=== PATIENT | male | born 1985 | race Caucasian/White ===

== ENCOUNTER 2016-05-16 14:28 | Emergency (ER) | payer MEDICAID ==
[~2016-05-16] VITALS: Ht 170.2 cm; Wt 78.9 kg
[2016-05-16 14:47] VITALS: BP 123/66
== END 2016-05-16 16:34 | disposition home or self-care (01) ==
LOC: ER 14:31
DX: H10.89 Other conjunctivitis (principal); B99.9 Unspecified infectious disease
CPT/HCPCS: A4606; Z7610

== ENCOUNTER 2022-10-22 09:59 | Inpatient (IN) | payer MEDICAID ==
[~2022-10-22] VITALS: Ht 172.7 cm; Wt 71.2 kg
[2022-10-22] MEDS ORDERED: IV NS 0.9% 250 ML IV ONE ×2 (10:48→10:51)
[2022-10-22] MEDS ORDERED: IOHEXOL-300 100 ML VIAL IV ONE ×2 (10:48→10:51)
[2022-10-22 11:09] LABS: CALCIUM, SERUM 8.9 mg/dL (8.5-10.1); CREATININE 0.8 mg/dL (0.6-1.3); POTASSIUM 4.2 mmol/L (3.5-5.1)
[2022-10-22 11:18] LABS: BASOPHILS % (AUTO) 0.5 % (0.0-2.0); EOSINOPHILS % (AUTO) 1.1 % (0.0-6.0); HEMATOCRIT 35 % (39-51); HEMOGLOBIN 11.3 g/dL (13.5-17.5); LYMPHOCYTES # (AUTO) 1.1 K/uL (0.8-4.8); LYMPHOCYTES % (AUTO) 25.8 % (20.0-44.0); MEAN CORPUSCULAR HEMOGLOBIN 25 PG (26.0-33.0); MEAN CORPUSCULAR HGB CONC 33 g/dl (31.0-36.0); MEAN CORPUSCULAR VOLUME 76 fL (80-96); MONOCYTES # (AUTO) 0.4 K/uL (0.1-1.30); MONOCYTES % (AUTO) 8.7 % (2.0-12.0); NEUTROPHILS # (AUTO) 2.8 K/uL (1.8-8.9); NEUTROPHILS % (AUTO) 63.9 % (43.0-81.0); PLATELET COUNT (AUTO) 338 K/uL (150-450); RED BLOOD CELL COUNT(AUTO) 4.53 MIL/uL (4.5-6.0); WHITE BLOOD COUNT (AUTO) 4.4 K/uL (4.3-11.0)
[2022-10-22 11:22] LABS: ALBUMIN 3.1 g/dL (3.4-5.0); BILIRUBIN,TOTAL 0.5 mg/dL (0.2-1.0); MAGNESIUM 1.9 mg/dL (1.8-2.4); TOTAL PROTEIN, SERUM 10.3 g/dL (6.4-8.2)
[2022-10-22 11:23] LABS: D-DIMER 7.09 mg/L(FEU (0.17-0.50); INR 1.17 (0.91-1.10); PARTIAL THROMBOPLASTIN TIME 29.2 SEC (24.3-34.3); PROTHROMBIN TIME 12.2 SECS (9.2-11.1)
[2022-10-22 11:26] LABS: THYROID STIMULATING HORMONE 3.605 uIU/mL (0.358-3.74)
[2022-10-22 12:28] LABS: APPEARANCE,URINE CLEAR (CLEAR); BILIRUBIN,URINE NEGATIVE (NEGATIVE); BLOOD, URINE 2+ Ery/uL (NEGATIVE); COLOR,URINE YELLOW (YELLOW); KETONES,URINE TRACE mg/dL (NEGATIVE); LEUKOCYTE ESTERASE ,URINE NEGATIVE (NEGATIVE); NITRITE, URINE NEGATIVE (NEGATIVE); PH,URINE 6.5 (5.0-8.0); PROTEIN,URINE NEGATIVE (NEGATIVE); UGLUCOSE NEGATIVE (NEGATIVE)
[2022-10-22] MEDS ORDERED: IV NS 0.9% 2,000 ML IV ONE (12:30)
[2022-10-22 12:40] LABS: AMPHETAMINE, URINE NEGATIVE (NEGATIVE); BARBITURATE, URINE NEGATIVE (NEGATIVE); BENZODIAZEPINE, URINE NEGATIVE (NEGATIVE); CANNABINOID, URINE NEGATIVE (NEGATIVE); COCCAINE, URINE NEGATIVE (NEGATIVE); OPIATE, URINE NEGATIVE (NEGATIVE); PHENCYCLIDINE SCREEN,URINE NEGATIVE (NEGATIVE)
[2022-10-22 12:44] LABS: ADD URINE CULTURE NO; BACTERIA,URINE None seen /HPF (None Seen); SQUAMOUS EPITHELIAL CELL,UR None Seen /HPF (None Seen); WBC,URINE NONE SEEN /HPF (0-3)
[2022-10-22 16:00] VITALS: BP 116/79; TEMP 99.6; O2SAT 98
[2022-10-22] MEDS ORDERED: HYDROCODONE/APAP 5/325MG TABLET PO PRN (17:00)
[2022-10-22] MEDS ORDERED: ACETAMINOPHEN 325 MG TABLET PO PRN (17:00)
[2022-10-22] MEDS ORDERED: ZOLPIDEM TARTRATE 5 MG TABLET PO PRN (17:30)
[2022-10-22] MEDS: IV NS 0.9% 1,000 ML IV PRN (18:17)
[2022-10-22 18:55] VITALS: BP 116/79; TEMP 98.3; O2SAT 98
[2022-10-22 20:00] VITALS: BP 112/70; TEMP 98.1; O2SAT 99
[2022-10-23] MEDS: IV NS 0.9% 1,000 ML IV PRN ×4 (01:07→23:40)
[2022-10-23 07:16] LABS: BASOPHILS % (AUTO) 0.7 % (0.0-2.0); EOSINOPHILS # (AUTO) 0.1 K/uL (0.0-0.7); EOSINOPHILS % (AUTO) 2.3 % (0.0-6.0); HEMATOCRIT 33 % (39-51); HEMOGLOBIN 10.5 g/dL (13.5-17.5); LYMPHOCYTES # (AUTO) 0.7 K/uL (0.8-4.8); LYMPHOCYTES % (AUTO) 22.2 % (20.0-44.0); MEAN CORPUSCULAR HEMOGLOBIN 25 PG (26.0-33.0); MEAN CORPUSCULAR HGB CONC 32 g/dl (31.0-36.0); MEAN CORPUSCULAR VOLUME 77 fL (80-96); MONOCYTES # (AUTO) 0.2 K/uL (0.1-1.30); NEUTROPHILS # (AUTO) 2.1 K/uL (1.8-8.9); NEUTROPHILS % (AUTO) 66.8 % (43.0-81.0); PLATELET COUNT (AUTO) 298 K/uL (150-450); RED BLOOD CELL COUNT(AUTO) 4.28 MIL/uL (4.5-6.0); RED CELL DISTRIBUTION WIDTH 15.1 % (11.5-15.0); WHITE BLOOD COUNT (AUTO) 3.1 K/uL (4.3-11.0)
[2022-10-23 07:45] LABS: CALCIUM, SERUM 8.2 mg/dL (8.5-10.1); CREATININE 0.8 mg/dL (0.6-1.3)
[2022-10-23 08:00] VITALS: BP 111/68; TEMP 98.7; O2SAT 97
[2022-10-23 08:54] LABS: THYROID STIMULATING HORMONE 4.43 uIU/mL (0.358-3.74)
[2022-10-23 11:28] LABS: IRON, SERUM 46 ug/dl (50-175); TOTAL IRON BINDING CAPACITY 136 ug/dl (250-450)
[2022-10-23 11:42] LABS: FERRITIN 185 ng/mL (8-388)
[2022-10-23 13:51] LABS: HIV-1 p24 ANTIGEN NON REACTIVE (NONREACTIVE); HIV-1/2 ANTIBODY NON REACTIVE (NONREACTIVE)
[2022-10-23 14:29] LABS: RHEUMATOID FACTOR SCREEN NEGATIVE (NEGATIVE)
[2022-10-23 16:00] VITALS: BP 120/76; TEMP 97.6; O2SAT 99
[2022-10-23 16:23] LABS: OCCULT BLOOD STOOL NEGATIVE (NEGATIVE)
[2022-10-23 20:00] VITALS: BP 128/78; TEMP 98.8; O2SAT 98
[2022-10-23 21:28] VITALS: BP 128/78; TEMP 98.5; O2SAT 98
[2022-10-24] MEDS: IV NS 0.9% 1,000 ML IV PRN (06:39)
[2022-10-24 07:07] LABS: COMPLEMENT C3, SERUM 91 mg/dL (82-167); COMPLEMENT C4, SERUM 7 mg/dL (12-38); HBSAG SCREEN Negative (Negative); HEPATITIS A AB, IgM Negative (Negative); HEPATITIS B CORE AB, IgM Negative (Negative)
[2022-10-24 08:00] VITALS: BP 116/74; TEMP 98.1; O2SAT 99
[2022-10-24 08:07] LABS: *ANA ANTI-CENTROMERE B AB <0.2 AI (0.0-0.9); *ANA ANTI-DNA(DS) AB, QN 1 IU/mL (0-9); *ANA ANTI-JO-1 <0.2 AI (0.0-0.9); *ANA ANTICHROMATIN ANTIBODY 0.4 AI (0.0-0.9); *ANA RNP ANTIBODIES 0.2 AI (0.0-0.9); *ANA SJOGREN'S ANTI-SS-A 0.4 AI (0.0-0.9); *ANA SJOGREN'S ANTI-SS-B <0.2 AI (0.0-0.9); *ANAANTI-SCLERODERMA-70 AB <0.2 AI (0.0-0.9); *ANASMITH AB <0.2 AI (0.0-0.9)
[2022-10-24 10:07] LABS: HEPATITIS B SURFACE AB Reactive (.); IMMUNOGLOBULIN A, SERUM 384 mg/dL (90-386); IMMUNOGLOBULIN G, SERUM 3798 mg/dL (603-1613); IMMUNOGLOBULIN M, SERUM 105 mg/dL (20-172)
[2022-10-24 12:07] LABS: FOLIC ACID 5.5 ng/mL (>3.0)
[2022-10-24 14:07] LABS: *ANA ANTI-CENTROMERE B AB <0.2 AI (0.0-0.9); *ANA ANTI-DNA(DS) AB, QN 1 IU/mL (0-9); *ANA ANTI-JO-1 <0.2 AI (0.0-0.9); *ANA ANTICHROMATIN ANTIBODY 0.4 AI (0.0-0.9); *ANA RNP ANTIBODIES 0.2 AI (0.0-0.9); *ANA SJOGREN'S ANTI-SS-A 0.3 AI (0.0-0.9); *ANA SJOGREN'S ANTI-SS-B <0.2 AI (0.0-0.9); *ANAANTI-SCLERODERMA-70 AB <0.2 AI (0.0-0.9); *ANASMITH AB <0.2 AI (0.0-0.9)
[2022-10-25 12:03] LABS: *SPE A/G RATIO 0.5 (0.7-1.7); *SPE ALBUMIN 2.9 g/dL (2.9-4.4); *SPE ALPHA-1-GLOBULIN 0.3 g/dL (0.0-0.4); *SPE ALPHA-2-GLOBULIN 0.6 g/dL (0.4-1.0); *SPE BETA GLOBULIN 0.9 g/dL (0.7-1.3); *SPE GLOBULIN, TOTAL 5.5 g/dL (2.2-3.9); *SPE M-SPIKE Not Observed g/dL (Not Observed); *SPE PROTEIN TOTAL 8.4 g/dL (6.0-8.5); *SPEGAMMA GLOBULIN 3.6 g/dL (0.4-1.8)
[2022-10-25 13:07] LABS: ANTI-MITOCHONDRIAL AB <20.0 Units (0.0-20.0)
== END 2022-10-24 09:30 | disposition short-term general hospital (02) | DRG 351 ==
LOC: ER 10:03 → MED 14:59
PROVIDERS: ADMIT Internal Medicine; ATTEND Internal Medicine
DX: M62.82 Rhabdomyolysis (principal); D61.818 Other pancytopenia; D89.9 Disorder involving the immune mechanism, unspecified; R59.1 Generalized enlarged lymph nodes; Z20.822 Contact with and (suspected) exposure to COVID-19; D50.9 Iron deficiency anemia, unspecified; Z87.19 Personal history of other diseases of the digestive system
CPT/HCPCS: 36415; 71260-TC; 80048-TC; 80053-TC; 81001; 82272-TC; 82550-TC; 82553; 82607-TC; 82728-TC; 82784; 83516; 83540-TC; 83615-TC; 83690-TC; 83735-TC; 83880; 84155; 84165; 84439-TC; 84443-TC; 84484-TC; 85025-TC; 85045-TC; 85396; 85613; 85652-TC; 85670; 85705; 85732; 86060; 86140-TC; 86225; 86235; 86334; 86431-TC; 86706; 86803; 87340; 87806; A4223; C9803; G0378; J7030; J7050; Q9967